=== PATIENT | male | born 2000 | race Caucasian/White ===

== ENCOUNTER 2024-10-03 05:52 | Emergency (ER) | payer MEDICAID, OTHER ==
[~2024-10-03] VITALS: Ht 188 cm; Wt 68.0 kg
[2024-10-03 06:07] VITALS: BP 127/77; TEMP 98.2; O2SAT 97
[2024-10-03] MEDS ORDERED: DULO30CA2 PO (06:13)
== END 2024-10-03 06:23 | disposition home or self-care (01) ==
LOC: ER 06:05
DX: F32.A Depression, unspecified (principal); F41.9 Anxiety disorder, unspecified; Z76.0 Encounter for issue of repeat prescription; Z79.899 Other long term (current) drug therapy; Z60.2 Problems related to living alone

== ENCOUNTER 2024-10-16 11:45 | Emergency (ER) | payer OTHER ==
[~2024-10-16] VITALS: Ht 188 cm; Wt 68.0 kg
[~2024-10-16 11:45] MED LIST: DULO30CA2 PO
[2024-10-16] MEDS ORDERED: AMOX-430 PO (13:02)
[2024-10-16] MEDS ORDERED: DIVA500T2 PO (13:02)
[2024-10-16] MEDS: IV NS 0.9% 1,000 ML BAG IV ONE (13:10)
[2024-10-16 13:11] LABS: PLATELET COUNT (AUTO) 230 K/uL (150-450); RED BLOOD CELL COUNT(AUTO) 4.93 MIL/uL (4.5-6.0); RED CELL DISTRIBUTION WIDTH 13.4 % (11.5-15.0); WHITE BLOOD COUNT (AUTO) 8.5 K/uL (4.3-11.0)
[2024-10-16 13:22] LABS: CALCIUM, SERUM 9.1 mg/dL (8.5-10.1); CREATININE 1.2 mg/dL (0.6-1.3); SODIUM SERUM 140.0 mmol/L (136-145); UREA NITROGEN, BLOOD 13.0 mg/dL (7-18)
[2024-10-16 14:42] VITALS: BP 146/79; TEMP 99.4; O2SAT 97
[2024-10-16 15:12] LABS: HIV-1/2 ANTIBODY NON REACTIVE (NONREACTIVE)
[2024-10-17 10:07] LABS: RAPID PLASMA REAGIN QUAL. Non Reactive (Non Reactive)
== END 2024-10-16 14:43 | disposition home or self-care (01) ==
LOC: ER 11:51
DX: N45.2 Orchitis (principal); N50.812 Left testicular pain; R21 Rash and other nonspecific skin eruption; F32.A Depression, unspecified; Z79.899 Other long term (current) drug therapy; Z11.3 Encounter for screening for infections with a predominantly sexual mode of transmission; Z60.2 Problems related to living alone
CPT/HCPCS: 36415; 76870-TC; 80048-TC; 85025-TC; 86592; 86593; 87806